=== PATIENT | male | born 1955 | race Caucasian/White ===

== ENCOUNTER 2017-10-08 12:11 | Inpatient (IN) | payer BC ==
[2017-10-08] MEDS ORDERED: NS 1,000 ML IV ONE (12:53)
[2017-10-08 13:10] LABS: PLATELET COUNT 163 10^3/uL (150-400)
--- NOTE | 2017-10-08 13:51 | EDPHY ---
H & P Stated Complaint: gen abd pain x 1 day, fatigue, fluctuating blood sugars, presyncoapl yester Time Seen by Provider: 10/08/17 13:14 HPI/ROS: CHIEF COMPLAINT: Abdominal pain HISTORY OF PRESENT ILLNESS: 62-year-old male s/p cholecystectomy presents with abdominal pain. Onset of generalized abdominal pain yesterday evening, moderate and persistent until arrival to the emergency department. The abdominal pain has now almost completely resolved. No associated symptoms and no known alleviating or aggravating factors. Specifically no fever, vomiting or diarrhea. He is a heavy drinker, drinking up to 8 oz of bourbon daily. REVIEW OF SYSTEMS: complete 10 point ROS negative except at noted in the HPI - Personal History Current Tetanus/Diphtheria Vaccine: No Current Tetanus Diphtheria and Acellular Pertussis (TDAP): No - Medical/Surgical History Hx Asthma: No Hx Chronic Respiratory Disease: No Hx Diabetes: Yes Hx Cardiac Disease: Yes Hx Renal Disease: No Hx Cirrhosis: No Hx Alcoholism: No Hx HIV/AIDS: No Hx Splenectomy or Spleen Trauma: No Other PMH: NIDDM. htn. afib - Social History Smoking Status: Never smoked - Physical Exam Exam: General Appearance: Alert, pleasant Eyes: Pupils equal and round, scleral icterus ENT, Mouth: Mucous membranes moist Neck: Normal inspection Respiratory: Lungs are clear to auscultation Cardiovascular: Regular rate and rhythm Gastrointestinal: Abdomen is soft, right upper quadrant tenderness Neurological: A&O, nonfocal, normal gait Skin: Warm and dry, jaundiced Extremities: Normal inspection Psychiatric: Mood and affect normal Constitutional: Initial Vital Signs Temperature (C) 37.0 C 10/08/17 12:16 Heart Rate 65 10/08/17 12:16 Respiratory Rate 18 10/08/17 12:16 Blood Pressure 135/95 H 10/08/17 12:16 O2 Sat (%) 95 10/08/17 12:16 O2 Delivery Mode Room Air Allergies/Adverse Reactions: No Known Allergies Allergy (Unverified 10/08/17 12:14) Home Medications: Medication Instructions Recorded Diovan 10/08/17 Metformin HCl 10/08/17 Nexium 10/08/17 SOTALOL 10/08/17 Medical Decision Making - Diagnostics Imaging Results: Imaging Impressions Abdomen/Pelvis CT 10/08/17 13:45 Impression: 1. Obstruction of the common bile duct at the level of the pancreatic head. No discrete common bile duct stone or pancreatic lesion; however, sensitivity is limited since no IV or oral contrast was administered. Consider MRCP to further characterize. 2. No free fluid, lymphadenopathy, or mass. 3. Constipation and sigmoid diverticulosis. Findings discussed with Emergency Department physician, Dr. Linda Andres on October 08, 2017 at 1430 hours. Attention: This CT examination is specifically designed to evaluate patients who are clinically suspected of having acute obstructive uropathy. This examination does not use radiographic contrast, and as such, provides only a limited evaluation of the abdomen, pelvis and retroperitoneum. If there is further clinical suspicion for pathological conditions other than obstructive uropathy, a complete CT evaluation of the abdomen and pelvis utilizing intravenous, oral, and rectal contrast should be considered. ED Course/Re-evaluation: This patient presents with abdominal pain, jaundice and elevated LFTs. Prior cholecystectomy 5-[address] abd/pelvis without IV contrast ordered ( creat 1.7). CT reveals dilated common bile duct 11 mm with biliary obstruction at the level of the pancreatic duct. Results discussed with the patient and his . Given bilirubin of 9.9 and obstructive jaundice, will admit for further evaluation. The hospitalist service was consulted for admission. Differential Diagnosis: Differential diagnosis includes though is not limited to acute cholangitis, pancreatic tumor, acute infectious versus alcoholic hepatitis - Data Points Laboratory Results: Laboratory Results 10/08/17 12:45 10/08/17 12:45 10/08/17 10/08/17 10/08/17 14:38 12:45 12:45 WBC RBC Hgb Hct MCV MCH MCHC RDW Plt Count MPV Neut % (Auto) Lymph % (Auto) [place] % (Auto) Eos % (Auto) Baso % (Auto) Nucleat RBC Rel Count Absolute Neuts (auto) Absolute Lymphs (auto) Absolute Monos (auto) Absolute Eos (auto) Absolute Basos (auto) Absolute Nucleated RBC Immature Gran % Immature Gran # VBG Lactic Acid Sodium 135 mEq/L mEq/L (135-145) Potassium 4.4 mEq/L mEq/L (3.3-5.0) Chloride 97 mEq/L mEq/L (97-110) Carbon Dioxide 23 mEq/l mEq/l (22-31) Anion Gap 15 mEq/L mEq/L (8-16) BUN 24 mg/dL H mg/dL (7-23) Creatinine 1.7 mg/dL H mg/dL (0.7-1.3) Estimated GFR 41 Glucose 128 mg/dL H mg/dL (70-100) Calcium 9.7 mg/dL mg/dL (8.5-10.4) Total Bilirubin 9.9 mg/dL H mg/dL (0.1-1.4) Conjugated Bilirubin 8.6 mg/dL H mg/dL (0.0-0.5) Unconjugated Bilirubin 1.3 mg/dL H mg/dL (0.0-1.1) AST 132 IU/L H IU/L (17-59) ALT 218 IU/L H IU/L (21-72) Alkaline Phosphatase 315 IU/L H IU/L (38-126) Total Protein 7.1 g/dL g/dL (6.3-8.2) Albumin 4.2 g/dL g/dL (3.5-5.0) Lipase 234 IU/L IU/L (23-300) Urine Color GIRMA Urine Appearance CLEAR Urine pH 5.0 (5.0-7.5) Ur Specific [place] 1.005 (1.002-1.030) Urine Protein NEGATIVE (NEGATIVE) Urine Ketones NEGATIVE (NEGATIVE) Urine Blood NEGATIVE (NEGATIVE) Urine Nitrate NEGATIVE (NEGATIVE) Urine Bilirubin NEGATIVE (NEGATIVE) Urine Urobilinogen NEGATIVE EU EU (0.2-1.0) Ur Leukocyte Esterase NEGATIVE (NEGATIVE) Urine Glucose NEGATIVE (NEGATIVE) Hepatitis A IgM Ab Pending Hep Bs Antigen Pending Hep B Core IgM Ab Pending Hepatitis C Antibody Pending 10/08/17 10/08/17 12:45 12:45 WBC 13.10 10^3/uL H 10^3/uL (3.80-9.50) RBC 4.99 10^6/uL 10^6/uL (4.40-6.38) Hgb 16.6 g/dL g/dL (13.7-17.5) Hct 47.2 % % (40.0-51.0) MCV 94.6 fL fL (81.5-99.8) MCH 33.3 pg pg (27.9-34.1) MCHC 35.2 g/dL g/dL (32.4-36.7) RDW 13.4 % % (11.5-15.2) Plt Count 163 10^3/uL 10^3/uL (150-400) MPV 11.8 fL H fL (8.7-11.7) Neut % (Auto) 54.3 % % (39.3-74.2) Lymph % (Auto) 36.6 % % (15.0-45.0) [place] % (Auto) 6.3 % % (4.5-13.0) Eos % (Auto) 1.4 % % (0.6-7.6) Baso % (Auto) 1.1 % % (0.3-1.7) Nucleat RBC Rel Count 0.0 % % (0.0-0.2) Absolute Neuts (auto) 7.12 10^3/uL H 10^3/uL (1.70-6.50) Absolute Lymphs (auto) 4.79 10^3/uL H 10^3/uL (1.00-3.00) Absolute Monos (auto) 0.82 10^3/uL H 10^3/uL (0.30-0.80) Absolute Eos (auto) 0.18 10^3/uL 10^3/uL (0.03-0.40) Absolute Basos (auto) 0.15 10^3/uL H 10^3/uL (0.02-0.10) Absolute Nucleated RBC 0.00 10^3/uL 10^3/uL (0-0.01) Immature Gran % 0.3 % % (0.0-1.1) Immature Gran # 0.04 10^3/uL 10^3/uL (0.00-0.10) VBG Lactic Acid 1.5 mmol/L mmol/L (0.7-2.1) Sodium Potassium Chloride Carbon Dioxide Anion Gap BUN Creatinine Estimated GFR Glucose Calcium Total Bilirubin Conjugated Bilirubin Unconjugated Bilirubin AST ALT Alkaline Phosphatase Total Protein Albumin Lipase Urine Color Urine Appearance Urine pH Ur Specific [place] Urine Protein Urine Ketones Urine Blood Urine Nitrate Urine Bilirubin Urine Urobilinogen Ur Leukocyte Esterase Urine Glucose Hepatitis A IgM Ab Hep Bs Antigen Hep B Core IgM Ab Hepatitis C Antibody Medications Given: Discontinued Medications Sodium Chloride (Ns) 1,000 mls @ 0 mls/hr IV ONCE ONE PRN Reason: Wide Open Stop: 10/08/17 12:54 Last Admin: 10/08/17 12:53 Dose: 1,000 mls Departure - Departure Disposition: [facility] Inpatient Acute Clinical Impression: Biliary obstruction Condition: Fair Referrals: Gerardo Villalobos MD [Primary Care Provider] - As per Instructions
[2017-10-08] MEDS ORDERED: ONDANSETRON DISINTEGRATING 4 MG TAB PO PRN (16:27)
[2017-10-08] MEDS ORDERED: ONDANSETRON 4 MG/2 ML VIAL IVP PRN (16:27)
[2017-10-08] MEDS ORDERED: TEMAZEPAM 15 MG CAP PO PRN (16:27)
[2017-10-08] MEDS ORDERED: ACETAMINOPHEN 325 MG TAB PO PRN (16:27)
[2017-10-08] MEDS ORDERED: PROMETHAZINE HCL 25 MG/ML INJ IVP PRN (16:27)
[2017-10-08] MEDS ORDERED: NICOTINE 21 MG/24 HR PATCH TD ONE (16:36)
[2017-10-08] MEDS ORDERED: NICOTINE POLACRILEX 2 MG GUM B PRN (16:36)
--- NOTE | 2017-10-08 16:36 | PDGENHP ---
History and Physical - Chief Complaint fatigue - History of Present Illness 62 yo M with pmh of DM2 presenting with several days of severe fatigue. Patient states that he has been essentially unable to exercise for the past several days due to fatigue. He has also noted sob and intermittent abdominal pain. He states the abdominal pain is mild, like a 3/10. He notes he has not felt like this in the past. He generally has good control of his DM, but states recently his sugars have been somewhat erratic. He has been eating and drinking though admits that his appetite is not great and has lost 60 pounds in last year--he states this was intentional and he lost weight by only eating when he is hungry , and he is rarely hungry. His urine has been dark in the last days and he has noticed his eyes were yellow. This has never happened before. He has been a heavy drinker but due to his fatigue etc he quit drinking 3 days ago. History Information - Allergies/Home Medication List Allergies/Adverse Reactions: No Known Allergies Allergy (Unverified 10/08/17 12:14) Home Medications: Amphet Asp/Amphet/D-Amphet [Amphetamine Salts 20 mg Tablet] 20 mg PO DAILY 10/08 [Last Taken 10/07/17] Cyanocobalamin/Folic AC/Vit B6 [B Complex-Folic Acid Tablet] 1 each PO DAILY [Last Taken 10/07/17] Esomeprazole Magnesium [Nexium 24Hr] 20 mg PO DAILY 10/08/17 [Last Taken ] Ezetimibe/Simvastatin [Vytorin 10-10 mg Tablet] 1 each PO DAILY18 10/08/17 [ Last Taken 10/07/17 18:00] Herbals/Supplements -Info Only 1 ea PO DAILY 10/08/17 [Last Taken Unknown] Multivitamins [Multivitamin (*)] 1 each PO DAILY 10/08/17 [Last Taken 10/07/17] Sotalol HCl [Sotalol] 80 mg PO BID 10/08/17 [Last Taken 10/08/17] Ubidecarenone [Coenzyme Q10] 100 mg PO DAILY 10/08/17 [Last Taken 10/07/17] Valsartan/Hydrochlorothiazide [Diovan Hct 160-25 mg Tablet] 1 each PO DAILY [Last Taken 10/08/17] metFORMIN HCL [Glucophage 500 mg (*)] 500 mg PO BIDMEAL 10/08/17 [Last Taken 18:00] I have personally reviewed and updated: family history, medical history, social history, surgical history - Past Medical History diabetes type 2, GERD, hypertension, hyperlipidemia Additional medical history: ADHD. etoh abuse - Surgical History Reports: cholecystectomy Additional surgical history: knee/ankle surgery. fistulotomy - Family History Additional family history: Father of cva at 88. Mother of cancer. - Social History Smoking Status: Current every day smoker (smokes 1 ppd) Alcohol Use: Heavy (stopped 3 days ago, prior 6-8 drinks per day) Drug Use: None Review of Systems Review of Systems: ROS: 10pt was reviewed & negative except for what was stated in HPI & below Physical Exam Physical Exam: Temp Pulse Resp BP Pulse Ox 36.4 C 67 16 128/70 H 94 10/08/17 15:38 10/08/17 15:38 10/08/17 15:38 10/08/17 15:38 10/08/17 15:38 Constitutional: no apparent distress, appears nourished Eyes: PERRL, icteric sclera Ears, Nose, Mouth, Throat: moist mucous membranes, hearing normal Cardiovascular: regular rate and rhythym, no murmur, rub, or gallop, No edema Respiratory: no respiratory distress, no rales or rhonchi, clear to auscultation Gastrointestinal: normoactive bowel sounds, no palpable masses, tenderness ( slight midepigastric ttp) Skin: warm, No normal color (jaundiced) Musculoskeletal: full muscle strength Neurologic: AAOx3 Psychiatric: interacting appropriately, not anxious, not encephalopathic Lab Data & Imaging Review 10/08/17 12:45 10/08/17 12:45 WBC 13.10 10^3/uL (3.80-9.50) H 10/08/17 12:45 RBC 4.99 10^6/uL (4.40-6.38) 10/08/17 12:45 Hgb 16.6 g/dL (13.7-17.5) 10/08/17 12:45 Hct 47.2 % (40.0-51.0) 10/08/17 12:45 MCV 94.6 fL (81.5-99.8) 10/08/17 12:45 MCH 33.3 pg (27.9-34.1) 10/08/17 12:45 MCHC 35.2 g/dL (32.4-36.7) 10/08/17 12:45 RDW 13.4 % (11.5-15.2) 10/08/17 12:45 Plt Count 163 10^3/uL (150-400) 10/08/17 12:45 MPV 11.8 fL (8.7-11.7) H 10/08/17 12:45 Neut % (Auto) 54.3 % (39.3-74.2) 10/08/17 12:45 Lymph % (Auto) 36.6 % (15.0-45.0) 10/08/17 12:45 [place] % (Auto) 6.3 % (4.5-13.0) 10/08/17 12:45 Eos % (Auto) 1.4 % (0.6-7.6) 10/08/17 12:45 Baso % (Auto) 1.1 % (0.3-1.7) 10/08/17 12:45 Nucleat RBC Rel Count 0.0 % (0.0-0.2) 10/08/17 12:45 Absolute Neuts (auto) 7.12 10^3/uL (1.70-6.50) H 10/08/17 12:45 Absolute Lymphs (auto) 4.79 10^3/uL (1.00-3.00) H 10/08/17 12:45 Absolute Monos (auto) 0.82 10^3/uL (0.30-0.80) H 10/08/17 12:45 Absolute Eos (auto) 0.18 10^3/uL (0.03-0.40) 10/08/17 12:45 Absolute Basos (auto) 0.15 10^3/uL (0.02-0.10) H 10/08/17 12:45 Absolute Nucleated RBC 0.00 10^3/uL (0-0.01) 10/08/17 12:45 Immature Gran % 0.3 % (0.0-1.1) 10/08/17 12:45 Immature Gran # 0.04 10^3/uL (0.00-0.10) 10/08/17 12:45 VBG Lactic Acid 1.5 mmol/L (0.7-2.1) 10/08/17 12:45 Sodium 135 mEq/L (135-145) 10/08/17 12:45 Potassium 4.4 mEq/L (3.3-5.0) 10/08/17 12:45 Chloride 97 mEq/L (97-110) 10/08/17 12:45 Carbon Dioxide 23 mEq/l (22-31) 10/08/17 12:45 Anion Gap 15 mEq/L (8-16) 10/08/17 12:45 BUN 24 mg/dL (7-23) H 10/08/17 12:45 Creatinine 1.7 mg/dL (0.7-1.3) H 10/08/17 12:45 Estimated GFR 41 10/08/17 12:45 Glucose 128 mg/dL (70-100) H 10/08/17 12:45 Calcium 9.7 mg/dL (8.5-10.4) 10/08/17 12:45 Total Bilirubin 9.9 mg/dL (0.1-1.4) H 10/08/17 12:45 Conjugated Bilirubin 8.6 mg/dL (0.0-0.5) H 10/08/17 12:45 Unconjugated Bilirubin 1.3 mg/dL (0.0-1.1) H 10/08/17 12:45 AST 132 IU/L (17-59) H 10/08/17 12:45 ALT 218 IU/L (21-72) H 10/08/17 12:45 Alkaline Phosphatase 315 IU/L (38-126) H 10/08/17 12:45 Total Protein 7.1 g/dL (6.3-8.2) 10/08/17 12:45 Albumin 4.2 g/dL (3.5-5.0) 10/08/17 12:45 Lipase 234 IU/L (23-300) 10/08/17 12:45 Urine Color GIRMA 10/08/17 14:38 Urine Appearance CLEAR 10/08/17 14:38 Urine pH 5.0 (5.0-7.5) 10/08/17 14:38 Ur Specific [place] 1.005 (1.002-1.030) 10/08/17 14:38 Urine Protein NEGATIVE (NEGATIVE) 10/08/17 14:38 Urine Ketones NEGATIVE (NEGATIVE) 10/08/17 14:38 Urine Blood NEGATIVE (NEGATIVE) 10/08/17 14:38 Urine Nitrate NEGATIVE (NEGATIVE) 10/08/17 14:38 Urine Bilirubin NEGATIVE (NEGATIVE) 10/08/17 14:38 Urine Urobilinogen NEGATIVE EU (0.2-1.0) 10/08/17 14:38 Ur Leukocyte Esterase NEGATIVE (NEGATIVE) 10/08/17 14:38 Urine Glucose NEGATIVE (NEGATIVE) 10/08/17 14:38 Visualized and Interpreted imaging results: Yes Interpretation: abd CT: obstruction of cbd at pancreatic head Assessment & Plan Assessment: Biliary obstruction (Acute) 62 yo M with hx of DM, etoh abuse admitted with fatigue and elevated lfts # elevated lfts: with overall obstructive pattern, e/o obstruction of CBD at pancreatic head though limited visualization given non con CT. Will get MRCP to further evaluate--concerning for pancreatic mass versus choledocholithiasis. Will trend lfts and get GI consult likely in am pending MRCP report. Does have hx of etoh abuse but no e/o cirrhosis on CT scan and pattern not c/w alc hep. Hepatitis serologies and coags pending. # paco: suspect due to pre renal as patient not feeling well and gives history of limited po intake. UA unremarkable. Will get urine na/creat and continue IVF overnight. Lactate 1.5, holding metformin as well as ARB/diuretic. # DM2: last a1c of 6.4, will hold metformin given paco as above, starting sliding scale # htn: BP within normal range, holding ARB/diuretic and will give prn hydralazine if bp elevated # IP status, suspect will require > 48 hours stay for eval/mgmt of above Patient new to my care. Old records reviewed and summarized as above. Care plan reviewed with ER doctor as above.
[2017-10-08] MEDS ORDERED: D50W 25 GM/50 ML SYR IVP PRN (16:39)
[2017-10-08] MEDS ORDERED: NS 1,000 ML IV SCH (16:45)
[2017-10-08] MEDS: INSULIN LISPRO 100 UNIT/ML SC SCH (17:35)
--- NOTE | 2017-10-08 17:53 | PDMN ---
Medical Necessity Medical necessity: C/M review: Patient meets INPT criteria under [facility] M-555 Gallbladder or Bile Duct Inflammation or Stone: Acute and persistent biliary obstruction, obstruction of common bile duct at pancreatic head seen on CT, elevated LFTs, acute kidney injury, WBC 13.10, BUN 24, Cr 1.7, total bilirubin 9.9, AST 132, ALT 218, Alk phos 315, requiring planned MRCP, ongoing IV NS 100 ml/hr. infusion, comorbid history of cholecystectomy, type 2 diabetes, hypertension, GERD, ADHD, alcohol abuse, current every day smoker (smokes 2 shayla per day), patient stopped drinking alcohol 3 days ago, patient previously drank 6-8 drinks per day. MD anticipates > 2 MN LOS for ongoing med nec for eval and TX of above.
[2017-10-08 19:08] LABS: INR 0.95 (0.83-1.16); PROTIME(PATIENT) 12.9 SEC (12.0-15.0)
[2017-10-08] MEDS: SOTALOL HCL 80 MG TAB PO SCH (20:31)
[2017-10-09 05:12] LABS: PLATELET COUNT 164 10^3/uL (150-400)
[2017-10-09 08:35] VITALS: BP 129/78
[2017-10-09] MEDS ORDERED: VIT B6 PO SCH (09:00)
[2017-10-09] MEDS ORDERED: ADDERALL 20 MG TAB PO SCH (09:00)
[2017-10-09] MEDS ORDERED: PANTOPRAZOLE SODIUM 40 MG TAB PO SCH (09:00)
[2017-10-09] MEDS ORDERED: MULTIVITAMINS 1 EACH TAB PO SCH (09:00)
[2017-10-09] MEDS: INSULIN LISPRO 100 UNIT/ML SC SCH ×2 (09:00→12:03)
[2017-10-09] MEDS ORDERED: CYANOCOBALAMIN PO SCH (09:00)
[2017-10-09] MEDS ORDERED: FOLIC AC PO SCH (09:00)
[2017-10-09] MEDS: SOTALOL HCL 80 MG TAB PO SCH (09:00)
[2017-10-09] MEDS: ENOXAPARIN 40 MG/0.4 ML SYR SC SCH ×2 (09:01→09:06)
[2017-10-09] MEDS: oxyCODONE IR 5 MG TAB PO PRN ×2 (09:08→14:34)
--- NOTE | 2017-10-09 11:58 | ASMTCASEMG ---
Living Arrangements What is your living Answers: With Spouse arrangement? Who do you live with? Type Of Residence What kind of residence do Answers: House you live in? Discharge Plan Comments Coordination Status Comments Notes: CM spoke w/ RIA Navarrete regarding d/c POC. Pt is a 62 y/o man admitted for billiary obstruction. Pt may have a ERCP study done today. Pt will most likely d/c independent when medically stable. No therapies ordered at this time. CM available for changes. Plan: Independent Date Signed: 10/09/2017 11:57 AM Electronically Signed By:BRENDON Russell
--- NOTE | 2017-10-09 13:11 | GCON ---
[f rep st] CONSULTATION DATE OF CONSULTATION: 10/09/2017 REFERRING PHYSICIAN: DR. FINNEY CHIEF COMPLAINT: Jaundice. HISTORY OF PRESENT ILLNESS: I am asked to see this patient in consultation by Dr. Finney for sravan complaint of jaundice. The patient is a 62-year-old who has a long history of heavy alcohol use an d diabetes who acutely developed fatigue last week and was noted to have change in skin color with ja undice. He has no prior history of liver disease or hepatitis. He stopped drinking on Tuesday. He has had approximately 80 pounds weight loss over the past year, but states this was intentional due t o his underlying diabetes. His appetite has been fine. No nausea, vomiting, GERD, or dysphagia. He does have some mild abdominal discomfort, more in the epigastric periumbilical area. No known famil y history for pancreatic cancer. ALLERGIES: The patient has no reported drug allergies. MEDICINES: At home, include multivitamins, D-Amphetamine, Diovan, metformin, Vytorin, sotalol, and N exium. PAST MEDICAL HISTORY: Diabetes, alcohol use, GERD controlled with PPI, status post cholecystectomy. SOCIAL HISTORY: Patient does drink alcohol, although stopped on Tuesday. FAMILY HISTORY: Negative for colon cancer, pancreatic cancer. REVIEW OF SYSTEMS: I performed a complete review of systems, which is negative, except for the perti nent positives and negatives noted above in the HPI. PHYSICAL EXAMINATION: VITAL SIGNS: He is afebrile at 36.7, BP 120/75, pulse 77. CONSTITUTIONAL: H e is alert and oriented. HEENT: Eyes have notable scleral icterus. ENT: No oral lesions. CARDIOV ASCULAR: Regular rhythm. CHEST: Clear to auscultation. ABDOMEN: Obese, but soft. No masses. NE UROLOGIC: Nonfocal. SKIN: No lesions. LABORATORY/IMAGING: BUN and creatinine are 23 and 1.6. Alkaline phosphatase 309, AST 115, ALT 200, total bilirubin 10. Pro time is 12.9. White count 12 with hematocrit of 47.9. CT scan of the abdomen shows obstruction of the common duct to the level of pancreatic head, but no d iscrete common duct stones or lesions in the pancreas identified. No lymphadenopathy. Diverticulosi s noted in the colon. MRCP shows a common bile duct dilation with a 1.3 cm long stricture. The gallbladder is absent. IMPRESSION/RECOMMENDATIONS: Patient with jaundice and elevated liver function tests associated with abnormal MRI suggesting biliary stricture. This is worrisome for possible malignant stricture, altho ugh also consider inflammatory stricture or other etiology. The patient does have a long history of alcohol use; however, I think that his liver function tests are not consistent with alcoholic hepatit is and more suggestive of biliary obstruction. I think patient would benefit with ERCP for diagnosis and for therapeutic drainage of the common duct. Patient is planning to return to [place] this w [place]; however, we will see if we can arrange for an ERCP while here or he may consider doing it when elizabet montes de oca returns to his home. At this point, no signs for cholangitis. Thank you for this consult. /[id number]/MODL
--- NOTE | 2017-10-09 14:52 | HOSPPROG ---
Hospitalist Progress Note Assessment/Plan: 62 yo M with hx of DM, etoh abuse admitted with fatigue and elevated lfts # elevated lfts: with overall obstructive pattern, e/o obstruction of CBD at pancreatic head on CT and on MRI appears to have a 1.3cm stricture of CBD. GI consulted, patient will require ERCP however timing of that remains uncertain-- either will be performed soon versus in [place] where he is planning to go in several days. LFTs remain elevated today. # paco: suspect due to pre renal as patient not feeling well and gives history of limited po intake. UA unremarkable. Creatinine only improving slightly overnight to 1.6, FENa 0.39% consistent with pre-renal etiology. Will continue IVF for now and monitor. # etoh abuse: patient has had a longstanding hx of drinking but quit several days prior to admit due to fatigue and abdominal pain, no e/o withdrawal. # DM2: last a1c of 6.4, will hold metformin given paco as above, starting sliding scale # htn: BP within normal range, holding ARB/diuretic and will give prn hydralazine if bp elevated # IP status, suspect will require > 48 hours stay for eval/mgmt of above Care plan reviewed with Dr. Owens including need for ERCP. Further hx obtained from patients present at bedside. Subjective: no significant overnight events, patient feeling fine today, questions answered Objective: Vital Signs Temp Pulse Resp BP Pulse Ox 36.7 C 77 16 129/78 H 93 10/09/17 08:00 10/09/17 08:00 10/09/17 08:00 10/09/17 08:00 10/09/17 08:00 Laboratory Results 10/09/17 05:00 10/09/17 05:00 10/08/17 10/09/17 10/10/17 05:59 05:59 05:59 Intake Total 1250 Output Total 1100 Balance 150 PT 12.9 SEC (12.0-15.0) 10/08/17 12:45 INR 0.95 (0.83-1.16) 10/08/17 12:45 Constitutional: no apparent distress, appears nourished Eyes: PERRL, icteric sclera Ears, Nose, Mouth, Throat: moist mucous membranes, hearing normal Cardiovascular: regular rate and rhythym, no murmur, rub, or gallop, No edema Respiratory: no respiratory distress, no rales or rhonchi, clear to auscultation Gastrointestinal: normoactive bowel sounds, no palpable masses, tenderness ( slight midepigastric ttp) Skin: warm, No normal color (jaundiced) Musculoskeletal: full muscle strength Neurologic: AAOx3 Psychiatric: interacting appropriately, not anxious, not encephalopathic - Time Spent With Patient Time Spent with Patient: greater than 35 minutes Time Spent with Patient: Greater than 35 minutes spent on this patients care, greater than 50% of time spent counseling, educating, and coordinating care regarding the above mentioned plan. ICD10 Worksheet Patient Problems: Problems Problem Status Onset Biliary obstruction Acute
--- NOTE | 2017-10-09 17:35 | PDDCSUM ---
Discharge Summary Discharge Summary: Dates of service 10/08-10/09/17 Consultations: GI Procedures performed: abd CT, MRCP Hospital course by problem: 62 yo M with hx of DM, etoh abuse admitted with fatigue and elevated lfts # cbd stricture: LFTs remain significantly elevated and noted to have a 1.3 cm CBD stricture on MRCP. Patient will need ERCP, however this was unable to be arranged in a timely fashion--discussed with GI and patient, given that GI unable to state whether this could be performed even on Tuesday, patient electing to go home and f/u as an OP. This was not felt to be an emergent procedure given no e/o cholangitis and therefore did not attempt transfer to another facility either. Patient and understand though somewhat irritated at current plan, per Dr. Owens, GI will contact family on Tuesday and attempt to schedule ERCP in the coming days. # paco: suspect due to pre renal as patient not feeling well and gives history of limited po intake. UA unremarkable. Creatinine only improving slightly overnight to 1.6, FENa 0.39% consistent with pre-renal etiology. Encouraged patient to continue pushing fluids # etoh abuse: patient has had a longstanding hx of drinking but quit several days prior to admit due to fatigue and abdominal pain, no e/o withdrawal. # DM2: last a1c of 6.4, will hold metformin given paco as above, starting sliding scale # htn: BP within normal range, holding ARB/diuretic and will give prn hydralazine if bp elevated dc home f/u with GI as above > 35 min spent in above more than half in coordination of care and explaining f/ u care plan to patient and family
[2017-10-11 02:40] LABS: HEPATITIS B SURFACE ANTIGEN NEGATIVE (NEGATIVE)
[2017-10-11 02:45] LABS: HEPATITIS A ANTIBODY IGM (BCH) NEGATIVE (NEGATIVE); HEPATITIS B CORE AB IGM NEGATIVE (NEGATIVE)
[2017-10-11 02:57] LABS: HEPATITIS C ANTIBODY TOTAL NEGATIVE (NEGATIVE)
== END 2017-10-09 18:16 | disposition home or self-care (01) | DRG 445 ==
LOC: F3E 16:37
PROVIDERS: ADMIT Internal Medicine; ATTEND Internal Medicine
DX: K83.1 Obstruction of bile duct (principal); N17.9 Acute kidney failure, unspecified; E11.9 Type 2 diabetes mellitus without complications; F10.10 Alcohol abuse, uncomplicated; I10 Essential (primary) hypertension; R53.83 Other fatigue; R55 Syncope and collapse; K59.00 Constipation, unspecified; K57.30 Diverticulosis of large intestine without perforation or abscess without bleeding; I48.91 Unspecified atrial fibrillation; K21.9 Gastro-esophageal reflux disease without esophagitis; E78.5 Hyperlipidemia, unspecified; F17.210 Nicotine dependence, cigarettes, uncomplicated; Z79.84 Long term (current) use of oral hypoglycemic drugs; Z82.3 Family history of stroke; Z90.49 Acquired absence of other specified parts of digestive tract
CPT/HCPCS: G0472; J1650